=== PATIENT | male | born 1990 | race American Indian/Alaskan Native ===

== ENCOUNTER 2018-08-05 23:52 | Emergency (ER) | payer OTHER ==
[2018-08-06 00:07] VITALS: BP 132/70; PULSE 64; RESP 16; TEMP 98.3; O2SAT 100
[2018-08-06] MEDS ORDERED: Naproxen 500 MG TAB PO ONE ×2 (00:45→01:09)
[2018-08-06] MEDS ORDERED: Amoxicillin-Clav 875-125 mg Tab PO STA (00:45)
--- NOTE | 2018-08-06 00:49 | ED PDOC ---
HPI: Dental Pain/Injury Time Seen by Provider: 08/06/18 00:26 Chief Complaint (Nursing): Dental Pain Chief Complaint (Provider): toothache History Per: Patient History/Exam Limitations: no limitations Onset/Duration Of Symptoms: Days (1 month), Waxing/Waning Current Symptoms Are (Timing): Still Present Additional History Per: Patient Additional Complaint(s): 28 y/o male presents for evaluation of right lower tooth pain x 1 month. Patient notes associated swelling to mandible today, which prompted ED visit. Patient states he has had similar symptoms before and was evaluated at [facility] ED and prescribed pain medication and antibiotics with resolution of symptoms. Patient was seen by a dentist in March and referred to oral surgery for ext raction of 2 right lower molars, but he was unable to follow through with it due to out of pocket costs. Denies fever, nausea/vomiting, difficulty speaking/swallowing. Past Medical History Reviewed: Historical Data, Nursing Documentation, Vital Signs Vital Signs: Last Vital Signs Temp 98.3 F 08/06/18 00:03 Pulse 64 08/06/18 00:03 Resp 16 08/06/18 00:03 BP 132/70 08/06/18 00:03 Pulse Ox 100 08/06/18 00:03 - Medical History PMH: No Chronic Diseases - Surgical History Surgical History: No Surg Hx - Family History Family History: States: Unknown Family Hx - Living Arrangements Living Arrangements: With Family - Immunization History Hx Tetanus Toxoid Vaccination: No Hx Influenza Vaccination: No Hx Pneumococcal Vaccination: No - Home Medications Home Medications: Ambulatory Orders Medication Instructions Recorded Clindamycin [Cleocin] 300 mg PO Q8H 7 Days #21 cap 06/09/18 Clindamycin [Cleocin] 300 mg PO TID #20 cap 08/06/18 Naproxen [Naprosyn] 500 mg PO Q12 PRN #20 tablet 08/06/18 - Allergies Allergies/Adverse Reactions: Allergies Allergy/AdvReac Type Severity Reaction Status Date / Time No Known Allergies Allergy Verified 08/06/18 00:03 Review of Systems ROS Statement: Except As Marked, All Systems Reviewed And Found Negative ENT: Positive for: Mouth Pain Physical Exam - Reviewed Nursing Documentation Reviewed: Yes Vital Signs Reviewed: Yes - Physical Exam Appears: Positive for: Well, Non-toxic, No Acute Distress Head Exam: Positive for: ATRAUMATIC, NORMAL INSPECTION, NORMOCEPHALIC Skin: Positive for: Normal Color ENT: Positive for: Other (cracked two back molars right lower side with + decay. Surrounding edema, erythema to gingiva and buccal mucosa without abscess formation. Palpable mobile mass overlying right mandible ?node? No fluctuance, erythema, temp change noted ) - ECG O2 Sat by Pulse Oximetry: 100 - Progress ED Course And Treament: -naproxen PO -clindamycin PO Patient educated on findings, discharged with rx Clindamycin, Naproxen Patient was given list of dental clinics in [facility] to follow up with and stressed importance of doing so as this seems to be an on-and-off issue for months. Patient demonstrates full understanding Return precautions given Disposition - Clinical Impression Clinical Impression: Toothache, Dental caries - Patient ED Disposition Is Patient to be Admitted: No Counseled Patient/Family Regarding: Diagnosis, Need For Followup, Rx Given - Disposition Disposition: Routine/Home Disposition Time: 01:39 Condition: IMPROVED Prescriptions: Clindamycin [Cleocin] 300 mg PO TID #20 cap Naproxen [Naprosyn] 500 mg PO Q12 PRN #20 tablet PRN Reason: Pain, Moderate (4-7) Instructions: Tooth Decay, Adult, Dental Pain
== END 2018-08-06 02:01 | disposition home or self-care (01) ==
LOC: H.ER 23:52
DX: K02.9 Dental caries, unspecified (principal)